=== PATIENT | female | born 1960 | race Caucasian/White ===

== ENCOUNTER → 2016-11-18 | Outpatient (CLI) | payer MEDICARE, BC ==
[~2016-11-18] MED LIST: ASPI-482 PO; CARI350T14 PO; CHOL10003 PO; DILT120C97 PO; DILT180C2 PO; FURO20TA3 PO; GABA-586 PO; IOHEXOL 180 MG/ML 10 ML VIAL. ONE; LEVO50TA5 PO; METH10TA10 PO; NAPR500T3 PO; OLME1TAB PO; PRAV40TA2 PO; PROAIR HFA8.5 GM INH; methylPREDNISolone ACETATE 40 MG/ML VIAL. ONE; methylPREDNISolone ACETATE 80 MG/ML VIAL. ONE
--- NOTE | 2016-11-18 11:42 | PAIN ---
DATE OF SERVICE: 11/18/2016 PROGRESS NOTE DIAGNOSES: Lumbar radiculopathy with lumbar degenerative disk disease and lumbar spondylosis. HISTORY OF PRESENT ILLNESS: The patient is a 56-year-old female who returns for followup status post lumbar epidural steroid injections x 2. The patient reports approximately 50% improvement initially, but the pain is returning now over the past couple of days and reports the first week is doing very well, but pain returning in the low back and left leg since that time. The patient reports no new motor or sensory deficits, no new bowel or bladder incontinence, but the pain is becoming worse, is a 6 on a scale of 10, radiating to the left posterior gluteus, posterior lateral thigh, posterior calf and anterior medial calf with muscle spasms in the legs, increased pain with standing, and worse from the knee down in the left side with weightbearing. The patient reports that she is planning to start physical therapy once again, but it has been back yet. I encouraged her strongly to do this, especially with some water therapy, which they had prescribed for her and she had to stop because she had illness, but plans on going back to this soon. The patient's old chart was reviewed as her current medication regimen updated. Current review of systems updated today as well. PHYSICAL EXAMINATION: VITAL SIGNS: Today, the patient's blood pressure is 129/58, pulse 99, respirations 18, temperature 98.8 degrees Fahrenheit, height 5 feet 4 inches, weight is 2.0 pounds. GENERAL: The patient is awake, alert, oriented, appropriate, very pleasant demeanor. HEENT: Head shows normocephalic, atraumatic. Extraocular movements are intact and symmetrical. Oral cavity shows mucous membranes are moist and pink. NECK: Shows anterior throat supple. Swallow reflex is symmetrical. CHEST: Shows normal on inspection. Breath sounds are clear bilaterally. HEART: Shows S1 and S2 clear. ABDOMEN: Obese, soft, nontender, nondistended. BACK: Shows spine grossly midline. Lumbar paraspinous muscle shows some moderate tenderness with palpation, but only in the lower lumbar distribution, only diffusely without radiation. EXTREMITIES: Lower extremities showed deep tendon reflexes at 1+ in the patellar and tendo calcaneus tendons are equal. Motor exam is approximately 4 on a scale of 5 equal, but equal and strong with dorsiflexion, extension, quadriceps and hamstring flexion and symmetrical. PLAN: Options were discussed with the patient. At this time, we will proceed with a third lumbar epidural steroid injection with fluoroscopic guidance. Risks were again discussed including, but not limited to bleeding, infection, possibility of epidural hematoma, subsequent neurologic compromise, dural puncture, headaches, spinal cord and/or nerve damage, side effects of steroid medication and poor results regarding pain control. The patient understands and wishes to proceed. The patient will return to clinic in approximately 2 weeks for followup. Again, strongly encouraged to start physical therapy once again as she is doing some aquatic therapy, which will be the most helpful for her. PROCEDURE NOTE DIAGNOSES: Lumbar radiculopathy with lumbar degenerative disk disease and lumbar spondylosis. PROCEDURE: Lumbar epidural steroid injection using translaminar approach at L5-S1 level with fluoroscopic guidance using sterile prep and drape and local anesthetic. Medications injected are 120 mg Depo-Medrol plus 10 mL preservative-free normal saline and 2 mL Isovue for contrast. Condition is stable at discharge. The patient tolerated procedure well, had no complications. MISSY LARRY MD DR: DIANA/billy JOB#: [id number] / [id number]
== END | disposition home or self-care (01) ==
LOC: PNCL 10:05
PROVIDERS: ATTEND Anesthesiology
DX: M51.16 Intervertebral disc disorders with radiculopathy, lumbar region (principal); E66.9 Obesity, unspecified
CPT/HCPCS: 62311; J1030; J1040

== ENCOUNTER 2016-11-24 11:11 | Inpatient (IN) | payer MEDICARE, BC ==
[~2016-11-24 11:11] MED LIST changes: -IOHEXOL 180 MG/ML 10 ML VIAL. ONE; -methylPREDNISolone ACETATE 40 MG/ML VIAL. ONE; -methylPREDNISolone ACETATE 80 MG/ML VIAL. ONE
[2016-11-24] MEDS ORDERED: DOPAMINE 400MG/250ML PREMIX BAG. IV ONE (12:31)
[2016-11-24] MEDS ORDERED: EPINEPHRINE 1 MG/10 ML DISP.SYRIN. ONE ×3 (12:31→23:00)
[2016-11-24] MEDS ORDERED: SODIUM BICARB ADULT 8.4% 50 MEQ/50 ML DISP.SYRIN. ONE (12:31)
[2016-11-24] MEDS ORDERED: EPINEPHRINE 30 MG/30 ML VIAL. ONE (12:31)
[2016-11-24] MEDS ORDERED: ATROPINE 0.5 MG/5 ML DISP.SYRIN. ONE (12:31)
--- NOTE | 2016-11-24 12:44 | ED.ADGEN ---
Adult General Chief Complaint Chief Complaint: GI PROBLEM HPI HPI Patient is a 56 year old female presents emergency department complaining of 2 day history of nausea, vomiting, and diarrhea. Patient reports that her stools have been dark and tarry. She has some A she initially had some abdominal pain was taking [id number]-[id number] antacids such as Tums and Pepto-Bismol. Patient does have a history of regular alcohol use. She is a bit of a difficult historian but does report she has a history of fibromyalgia as well as gastroparesis. She denies being diabetic. She states she has some known "scarring" of her esophagus. Patient states that at one time in the past she did have bright red blood per rectum and after colonoscopy was found to have significant hemorrhoids. Patient states that she has some lightheadedness and dizziness but this is not unusual for her. She denies any chest pain or shortness of breath. Review of Systems Review of Systems Constitutional: Denies fever or chills. [] Eyes: Denies change in visual acuity. [] HENT: Denies nasal congestion or sore throat. [] Respiratory: Denies cough or shortness of breath. [] Cardiovascular: Denies chest pain or edema. [] GI: Denies abdominal pain, nausea, vomiting, bloody stools or diarrhea. [] : Denies dysuria. [] Musculoskeletal: Denies back pain or joint pain. [] Integument: Denies rash. [] Neurologic: Denies headache, focal weakness or sensory changes. [] Endocrine: Denies polyuria or polydipsia. [] Lymphatic: Denies swollen glands. [] Psychiatric: Denies depression or anxiety. [] Current Medications Current Medications Current Medications Medications (Trade) Dose Ordered Sig/[facility] Start Time Stop Time Status Last Admin Dose Admin Ondansetron HCl (Zofran) 4 mg 1X ONCE 11/24/16 13:00 11/24/16 13:04 DC 11/24/16 13:15 4 MG Allergies Allergies Allergies Coded Allergies Type Severity Reaction Last Updated Verified bupropion Allergy Intermediate 11/24/16 Yes Physical Exam Physical Exam Constitutional: Well developed, well nourished, no acute distress, non-toxic appearance. [] HENT: Normocephalic, atraumatic, bilateral external ears normal, oropharynx moist, no oral exudates, nose normal. [] Eyes: PERRLA, EOMI, conjunctiva normal, no discharge. [] Neck: Normal range of motion, no tenderness, supple, no stridor. [] Cardiovascular:Heart rate regular rhythm, no murmur [] Lungs & Thorax: Bilateral breath sounds clear to auscultation [] Abdomen: Bowel sounds normal, soft, diffusely tender to palpation without peritoneal signs, no masses, no pulsatile masses. [] Skin: Warm, dry, no erythema, no rash. Slightly jaundiced [] Back: No tenderness, no CVA tenderness. [] Extremities: No tenderness, no cyanosis, no clubbing, ROM intact, no edema. [] Neurologic: Alert and oriented X 3, normal motor function, normal sensory function, no focal deficits noted. [] Psychologic: Affect normal, judgement normal, mood normal. [] Current Patient Data Vital Signs Vital Signs Date Time Temp Pulse Resp B/P Pulse Ox O2 Delivery O2 Flow Rate FiO2 11/24/16 13:15 103 20 117/55 98 Room Air 11/24/16 12:00 97.9 97.9 Lab Values Laboratory Tests Test 11/24/16 13:00 White Blood Count 11.2x10^3/uL (4.0-11.0) H Red Blood Count 1.89x10^6/uL (3.50-5.40) L Hemoglobin 6.5g/dL (12.0-15.5) *L Hematocrit 19.6% (36.0-47.0) *L Mean Corpuscular Volume 104fL (79-100) H Mean Corpuscular Hemoglobin 34pg (25-35) Mean Corpuscular Hemoglobin Concent 33g/dL (31-37) Red Cell Distribution Width 16.3% (11.5-14.5) H Platelet Count 99x10^3/uL (140-400) L Neutrophils (%) (Auto) 73% (31-73) Lymphocytes (%) (Auto) 13% (24-48) L Monocytes (%) (Auto) 13% (0-9) H Eosinophils (%) (Auto) 1% (0-3) Basophils (%) (Auto) 0% (0-3) Neutrophils # (Auto) 8.1x10^3uL (1.8-7.7) H Lymphocytes # (Auto) 1.5x10^3/uL (1.0-4.8) Monocytes # (Auto) 1.4x10^3/uL (0.0-1.1) H Eosinophils # (Auto) 0.1x10^3/uL (0.0-0.7) Basophils # (Auto) 0.0x10^3/uL (0.0-0.2) Prothrombin Time 18.1SEC (11.7-14.0) H Prothrombin Time INR 1.6 (0.8-1.1) H PTT 28SEC (24-38) Sodium Level 137mmol/L (136-145) Potassium Level 4.7mmol/L (3.5-5.1) Chloride Level 103mmol/L (98-107) Carbon Dioxide Level 27mmol/L (21-32) Anion Gap 7 (6-14) Blood Urea Nitrogen 33mg/dL (7-20) H Creatinine 1.3mg/dL (0.6-1.0) H Estimated GFR (Cockcroft-Gault) 42.7 Glucose Level 126mg/dL (70-99) H Lactic Acid Level 2.9mmol/L (0.4-2.0) H Calcium Level 9.1mg/dL (8.5-10.1) Aspartate Amino Transferase (AST) 54U/L (15-37) H Alanine Aminotransferase (ALT) 55U/L (14-59) Alkaline Phosphatase 204U/L (46-116) H Troponin I Quantitative 0.061ng/mL (0.000-0.055) NR-Tlb-M-Type Natriuretic Peptide 54pg/mL (0-124) Lipase 268U/L (73-393) Laboratory Tests 11/24/16 13:00 Laboratory Tests 11/24/16 13:00 EKG EKG [] Radiology/Procedures Radiology/Procedures Abdomen radiograph History: Severe abdominal pain with blood in stool. Comparison: None. Findings: AP supine abdomen radiograph, 2 images. Bowel gas pattern is nonspecific, without evidence of obstruction. No gross pneumoperitoneum is seen. Degenerative changes are present in the spine. Numerous calcifications in the pelvis are favored to be phleboliths. Impression: Nonspecific bowel gas pattern. DICTATED and SIGNED BY: ALLI FERGUSON MD DATE: 11/24/16 [id number] CC: ROSEANNA PÉREZ MD; HAYLEY DANIELS MD ~[] Course & Med Decision Making Course & Med Decision Making Pertinent Labs and Imaging studies reviewed. (See chart for details) The patient has a nonacute abdominal exam but is diffusely tender. However, her hemoglobin is significantly low at 6.5. Her blood pressures continued to trend down while she has been here. She has been accepted to the hospitalist service and we are currently waiting room to the ICU. In the meantime, I have started her on 2 units of packed red blood cells. She will be seen by GI. GI bleed, anemia, h/o hypertension, NSTEMI [] Dragon Disclaimer Dragon Disclaimer This electronic medical record was generated, in whole or in part, using a voice recognition dictation system. Critical Care Time Critical care time was 50 minutes exclusive of procedures. ROSEANNA PÉREZ MD Nov 24, 2016 12:44
[2016-11-24] MEDS ORDERED: ONDANSETRON PF 4 MG/2 ML VIAL. IV ONE (13:00)
--- NOTE | 2016-11-24 13:12 | RAD ---
Abdomen radiograph History: Severe abdominal pain with blood in stool. Comparison: None. Findings: AP supine abdomen radiograph, 2 images. Bowel gas pattern is nonspecific, without evidence of obstruction. No gross pneumoperitoneum is seen. Degenerative changes are present in the spine. Numerous calcifications in the pelvis are favored to be phleboliths. Impression: Nonspecific bowel gas pattern.
[2016-11-24 13:16] LABS: BASO % 0 % (0-3); EOS % 1 % (0-3); LYMPH # 1.5 x10^3/uL (1.0-4.8); LYMPH % 13 % (24-48); MEAN CORPUSCULAR HEMOGLOBIN 34 pg (25-35); MEAN CORPUSCULAR HGB CONC 33 g/dL (31-37); MEAN CORPUSCULAR VOLUME 104 fL (79-100); MONO % 13 % (0-9); NEUT % 73 % (31-73); PLATELET COUNT 99 x10^3/uL (140-400); RED BLOOD COUNT 1.89 x10^6/uL (3.50-5.40); RED CELL DISTRIBUTION WIDTH 16.3 % (11.5-14.5); WHITE BLOOD COUNT 11.2 x10^3/uL (4.0-11.0)
[2016-11-24 13:27] LABS: CALCIUM 9.1 mg/dL (8.5-10.1); CREATININE 1.3 mg/dL (0.6-1.0); GFR 42.7; POTASSIUM 4.7 mmol/L (3.5-5.1)
[2016-11-24 13:28] LABS: HEMATOCRIT 19.6 % (36.0-47.0); HEMOGLOBIN 6.5 g/dL (12.0-15.5)
[2016-11-24 13:30] LABS: INR 1.6 (0.8-1.1); PROTHROMBIN TIME PATIENT 18.1 SEC (11.7-14.0)
[2016-11-24] MEDS ORDERED: IV NORMAL SALINE 1000ML BAG 1,000 ML IV SCH ×3 (14:05→18:15)
[2016-11-24] MEDS ORDERED: FENTANYL PF 100 MCG/2 ML VIAL. IV PRN (14:15)
[2016-11-24] MEDS ORDERED: ONDANSETRON PF 4 MG/2 ML VIAL. IV PRN (14:15)
[2016-11-24 17:50] VITALS: BP 77/44
[2016-11-24 18:00] VITALS: BP 93/41
[2016-11-24] MEDS ORDERED: IV NORMAL SALINE 1000ML BAG 1,000 ML IV ONE (18:15)
[2016-11-24] MEDS ORDERED: PHYTONADIONE 10 MG/ML AMPUL. SQ ONE (18:15)
[2016-11-24] MEDS ORDERED: PANTOPRAZOLE IV PUSH 40 MG VIAL. IVP ONE (18:15)
[2016-11-24] MEDS ORDERED: NALOXONE 0.4 MG/ML VIAL. IV PRN (18:15)
--- NOTE | 2016-11-24 18:20 | PDOC1 ---
History and Physical Date of Admission Date of Admission DATE: 11/24/16 TIME: 18:17 Identification/Chief Complaint Chief Complaint blood per rectum Source Source: Caregiver, Chart review History of Present Illness History of Present Illness Ms. Neff, is a 56 year old female admitted for hematochezia, anemia, lethargy. She complained of a 2 day history of nausea, vomiting, and diarrhea. Patient reports that her stools have been dark and tarry. She had 2 large volume blood stools in the ER, the second causing hypotension, possible vagal response. She has not felt well for 2 days, and has not been drinking EtOH as she normally would recent use of [id number] antacids such as Tums and Pepto-Bismol, not much improvement history of fibromyalgia as well as gastroparesis Past Medical History Cardiovascular: AFIB, HTN GI: GERD, Other (gastroparesis) Musculoskeletal: low back pain, Other Rheumatologic: Fibromyalgia Infectious disease: No pertinent hx ENT: No pertinent hx Renal/: No pertinent hx Endocrine: No pertinent hx Dermatology: No pertinent hx Past Surgical History Past Surgical History: Other Family History Family History: Family History Unknown Social History ALCOHOL: heavy (8 daily + lemonritas?) Drugs: None Current Problem List Problem List Problems Medical Problems: (1) Anemia due to blood loss, acute Status: Acute (2) GI bleed Status: Acute (3) Hypertension Status: Acute (4) NSTEMI (non-ST elevated myocardial infarction) Status: Acute Problems: Current Medications Current Medications Current Medications Ondansetron HCl (Zofran) 4 mg 1X ONCE IV Last administered on 11/24/16 13:15; Start 11/24/16 at 13:00; Stop 11/24/16 at 13:04; Status DC Ondansetron HCl (Zofran) 4 mg PRN Q8HRS PRN IV NAUSEA/VOMITING; Start 11/24/16 at 14:15; Stop 11/25/16 at 14:14 Fentanyl Citrate 50 mcg 50 mcg PRN Q1HR PRN IV PAIN; Start 11/24/16 at 14:15; Stop 11/25/16 at 14:14 Sodium Chloride (Iv Sodium Chloride 0.9% 1000ml Bag) 1,000 ml @ 100 mls/hr Q10H IV Last administered on 11/24/16 14:24; Start 11/24/16 at 14:05; Stop 11/25 at 14:04 Active Scripts Active Reported Vitamin D3 (Cholecalciferol (Vitamin D3)) 1,000 Unit Tablet 1,000 Unit PO Aspir 81 (Aspirin) 81 Mg Tablet.dr 1 Tab PO DAILY Carisoprodol 350 Mg Tablet 350 Mg PO TID&HS Naproxen 500 Mg Tablet 500 Mg PO Proair Hfa Inhaler (Albuterol Sulfate) 8.5 Gm Hfa.aer.ad 1 Puff INH PRN Q6HRS PRN Furosemide 20 Mg Tablet 20 Mg PO DAILY Gabapentin 300 Mg Capsule 300 Mg PO DAILY Methylphenidate Hcl 10 Mg Tablet 10 Mg PO 5XDAY Levothyroxine Sodium 50 Mcg Tablet 50 Mcg PO DAILYAC Pravastatin Sodium 40 Mg Tablet 40 Mg PO DAILY Benicar Hct 20-12.5 Mg Tablet (Olmesartan/Hydrochlorothiazide) 1 Each Tablet 1 Tab PO DAILY Diltiazem 24HR Cd (Diltiazem Hcl) 120 Mg Cap.er.24h 120 Mg PO DAILY Allergies Allergies: Coded Allergies: bupropion (Verified Allergy, Intermediate, 11/24/16) ROS Review of System pt sleepy, lethargic and confused. unable to complete ROS Physical Exam Physical Exam tele reg [id number] General: Cooperative, mild distress, Other (confused) Lungs: Clear to auscultation, Normal air movement Heart: no murmurs Abdomen: Normal bowel sounds, Soft (obese), No tenderness Extremities: No clubbing, No cyanosis, No edema Skin: No rashes, No significant lesion Neuro: Sensation intact, Other (responds to verbal or painful, does not follow commands, falls back asleep) Vitals Vitals Vital Signs Date Time Temp Pulse Resp B/P Pulse Ox O2 Delivery O2 Flow Rate FiO2 11/24/16 16:57 100 15 141/64 98 Nasal Cannula 2 11/24/16 16:36 97.7 97.7 Labs Labs Laboratory Tests Test 11/24/16 13:00 White Blood Count 11.2x10^3/uL (4.0-11.0) Red Blood Count 1.89x10^6/uL (3.50-5.40) Hemoglobin 6.5g/dL (12.0-15.5) Hematocrit 19.6% (36.0-47.0) Mean Corpuscular Volume 104fL (79-100) Mean Corpuscular Hemoglobin 34pg (25-35) Mean Corpuscular Hemoglobin Concent 33g/dL (31-37) Red Cell Distribution Width 16.3% (11.5-14.5) Platelet Count 99x10^3/uL (140-400) Neutrophils (%) (Auto) 73% (31-73) Lymphocytes (%) (Auto) 13% (24-48) Monocytes (%) (Auto) 13% (0-9) Eosinophils (%) (Auto) 1% (0-3) Basophils (%) (Auto) 0% (0-3) Neutrophils # (Auto) 8.1x10^3uL (1.8-7.7) Lymphocytes # (Auto) 1.5x10^3/uL (1.0-4.8) Monocytes # (Auto) 1.4x10^3/uL (0.0-1.1) Eosinophils # (Auto) 0.1x10^3/uL (0.0-0.7) Basophils # (Auto) 0.0x10^3/uL (0.0-0.2) Prothrombin Time 18.1SEC (11.7-14.0) Prothromb Time International Ratio 1.6 (0.8-1.1) Activated Partial Thromboplast Time 28SEC (24-38) Sodium Level 137mmol/L (136-145) Potassium Level 4.7mmol/L (3.5-5.1) Chloride Level 103mmol/L (98-107) Carbon Dioxide Level 27mmol/L (21-32) Anion Gap 7 (6-14) Blood Urea Nitrogen 33mg/dL (7-20) Creatinine 1.3mg/dL (0.6-1.0) Estimated GFR (Cockcroft-Gault) 42.7 Glucose Level 126mg/dL (70-99) Lactic Acid Level 2.9mmol/L (0.4-2.0) Calcium Level 9.1mg/dL (8.5-10.1) Aspartate Amino Transf (AST/SGOT) 54U/L (15-37) Alanine Aminotransferase (ALT/SGPT) 55U/L (14-59) Alkaline Phosphatase 204U/L (46-116) Troponin I Quantitative 0.061ng/mL (0.000-0.055) SV-Rdw-H-Type Natriuretic Peptide 54pg/mL (0-124) Lipase 268U/L (73-393) Laboratory Tests Test 11/24/16 13:00 White Blood Count 11.2x10^3/uL (4.0-11.0) Red Blood Count 1.89x10^6/uL (3.50-5.40) Hemoglobin 6.5g/dL (12.0-15.5) Hematocrit 19.6% (36.0-47.0) Mean Corpuscular Volume 104fL (79-100) Mean Corpuscular Hemoglobin 34pg (25-35) Mean Corpuscular Hemoglobin Concent 33g/dL (31-37) Red Cell Distribution Width 16.3% (11.5-14.5) Platelet Count 99x10^3/uL (140-400) Neutrophils (%) (Auto) 73% (31-73) Lymphocytes (%) (Auto) 13% (24-48) Monocytes (%) (Auto) 13% (0-9) Eosinophils (%) (Auto) 1% (0-3) Basophils (%) (Auto) 0% (0-3) Neutrophils # (Auto) 8.1x10^3uL (1.8-7.7) Lymphocytes # (Auto) 1.5x10^3/uL (1.0-4.8) Monocytes # (Auto) 1.4x10^3/uL (0.0-1.1) Eosinophils # (Auto) 0.1x10^3/uL (0.0-0.7) Basophils # (Auto) 0.0x10^3/uL (0.0-0.2) Prothrombin Time 18.1SEC (11.7-14.0) Prothromb Time International Ratio 1.6 (0.8-1.1) Activated Partial Thromboplast Time 28SEC (24-38) Sodium Level 137mmol/L (136-145) Potassium Level 4.7mmol/L (3.5-5.1) Chloride Level 103mmol/L (98-107) Carbon Dioxide Level 27mmol/L (21-32) Anion Gap 7 (6-14) Blood Urea Nitrogen 33mg/dL (7-20) Creatinine 1.3mg/dL (0.6-1.0) Estimated GFR (Cockcroft-Gault) 42.7 Glucose Level 126mg/dL (70-99) Lactic Acid Level 2.9mmol/L (0.4-2.0) Calcium Level 9.1mg/dL (8.5-10.1) Aspartate Amino Transf (AST/SGOT) 54U/L (15-37) Alanine Aminotransferase (ALT/SGPT) 55U/L (14-59) Alkaline Phosphatase 204U/L (46-116) Troponin I Quantitative 0.061ng/mL (0.000-0.055) BU-Mem-E-Type Natriuretic Peptide 54pg/mL (0-124) Lipase 268U/L (73-393) VTE Prophylaxis Ordered VTE Prophylaxis Devices: No VTE Pharmacological Prophylaxi: Contraindicated Assessment/Plan Assessment/Plan Acute blood loss anemia GI bleed, lower possible, start IV PPI to be thorough, concern for brisk upper INR up, give FFP, vit K SQ, consult HEME admit to ICU 2 visits, time > 40 min metabolic encephalopathy, check b12 and folate, MCV on hgb is large, heavy EtOH use. banana bag and CIWS protocol obesity htn GERD appears dry, hydrate, vasomotor nephropathy CARMEL MALHOTRA MD Nov 24, 2016 18:20
[2016-11-24] MEDS ORDERED: MVI, ADULT NO.4 WITH VIT K 10 ML, FOLIC ACID 1 MG, THIAMINE 100 MG in IV RINGERS,LACTAT... IV ONE ×4 (18:45)
[2016-11-24 19:00] VITALS: BP_SYST 93; BP_SYST 95; BP_DIAS 47; BP_DIAS 50
[2016-11-24] MEDS ORDERED: PANTOPRAZOLE SODIUM IV 80 MG in IV NORMAL SALINE 100ML 100 ML IV SCH (19:00)
[2016-11-24 19:26] LABS: BASO # 0.1 x10^3/uL (0.0-0.2); BASO % 0 % (0-3); EOS % 0 % (0-3); HEMATOCRIT 22.7 % (36.0-47.0); HEMOGLOBIN 7.4 g/dL (12.0-15.5); LYMPH # 1.6 x10^3/uL (1.0-4.8); LYMPH % 14 % (24-48); MEAN CORPUSCULAR HEMOGLOBIN 31 pg (25-35); MEAN CORPUSCULAR HGB CONC 32 g/dL (31-37); MEAN CORPUSCULAR VOLUME 95 fL (79-100); MONO % 12 % (0-9); NEUT % 74 % (31-73); PLATELET COUNT 90 x10^3/uL (140-400); RED CELL DISTRIBUTION WIDTH 20.8 % (11.5-14.5); WHITE BLOOD COUNT 11.9 x10^3/uL (4.0-11.0)
[2016-11-24 19:52] LABS: BARBITURATES NEG (NEG); BENZODIAZEPINES NEG (NEG); CANNABINOIDS NEG (NEG); COCAINE NEG (NEG); METHADONE NEG (NEG); OPIATES NEG (NEG); PHENCYCLIDINE NEG (NEG)
[2016-11-24 20:00] VITALS: BP_SYST 124; BP_DIAS 50; BP_DIAS 58
[2016-11-24 20:06] LABS: ETHANOL, URINE NEG (NEG)
[2016-11-24 21:00] VITALS: BP 92/57
[2016-11-24 21:03] LABS: PLT ESTIMATE DECREASED (ADEQUATE)
[2016-11-24 21:04] LABS: ANISOCYTOSIS MOD; POLYCHROMASIA SLIGHT
[2016-11-24 22:00] VITALS: BP 98/70
[2016-11-24] MEDS ORDERED: ETOMIDATE 20 MG/10 ML VIAL. IV ONE (22:11)
[2016-11-24] MEDS ORDERED: SUCCINYLCHOLINE 200 MG/10 ML VIAL. ONE (22:11)
[2016-11-24 22:20] LABS: RED BLOOD COUNT 2.07 x10^6/uL (3.50-5.40); RED CELL DISTRIBUTION WIDTH 21.3 % (11.5-14.5); WHITE BLOOD COUNT 21.5 x10^3/uL (4.0-11.0)
--- NOTE | 2016-11-24 22:21 | RAD ---
PROCEDURE Nuclear medicine GI bleeding scan HISTORY Massive rectal bleeding. TECHNIQUE Patient was injected prior 2.0 millicuries of technetium-99m tagged RBC and sequential images of the abdomen are obtained without contrast. COMPARISON None available. FINDINGS The initial images demonstrate radiotracer activity in the central vasculature. The subsequent images demonstrate increasing radio activity in the left mid and lower abdomen probably in the descending colon. IMPRESSION The study is positive for GI bleeding probably in the descending colon. The results were given to the Yasir, nurse taking care of the patient in ICU after completion study Electronically signed by: Magdalena Rodgers MD (Nov 24, 2016 22:20:21)
[2016-11-24 22:22] LABS: HEMOGLOBIN 6.3 g/dL (12.0-15.5)
[2016-11-24] MEDS ORDERED: EPINEPHRINE VIAL 4 MG in IV NORMAL SALINE 250ML 250 ML IV PRN (22:45)
[2016-11-24] MEDS ORDERED: NOREPINEPHRINE 8 MG in IV NORMAL SALINE 250 ML IV PRN (22:45)
--- NOTE | 2016-11-24 23:48 | PDOC2 ---
CONSULT Date of Consult Date of Consult DATE: 11/24/16 TIME: 23:35 Reason for Consult Reason for Consult: GI bleed Referring Physician Referring Physician: Dr Rebollar Identification/Chief Complaint Chief Complaint BRB per rectum Source Source: Chart review, Unable to obtain due to (intubated) History of Present Illness Reason for Visit: 56 yo female presented with melanotic stools and some hematemesis. Had an episode of hypotension, PEA in bleeding scan. Was coded times two. Past Medical History Cardiovascular: AFIB, HTN GI: GERD, Other (gastroparesis) Musculoskeletal: low back pain, Other Rheumatologic: Fibromyalgia Infectious disease: No pertinent hx ENT: No pertinent hx Renal/: No pertinent hx Endocrine: No pertinent hx Dermatology: No pertinent hx Past Surgical History Past Surgical History: Other Family History Family History: Family History Unknown Social History ALCOHOL: heavy (8 daily + lemonritas?) Drugs: None Current Problem List Problem List Problems Medical Problems: (1) Anemia due to blood loss, acute Status: Acute (2) GI bleed Status: Acute (3) Hypertension Status: Acute (4) NSTEMI (non-ST elevated myocardial infarction) Status: Acute Current Medications Current Medications Current Medications Ondansetron HCl (Zofran) 4 mg 1X ONCE IV Last administered on 11/24/16 13:15; Start 11/24/16 at 13:00; Stop 11/24/16 at 13:04; Status DC Ondansetron HCl (Zofran) 4 mg PRN Q8HRS PRN IV NAUSEA/VOMITING; Start 11/24/16 at 14:15; Stop 11/25/16 at 14:14 Fentanyl Citrate 50 mcg 50 mcg PRN Q1HR PRN IV PAIN; Start 11/24/16 at 14:15; Stop 11/25/16 at 14:14 Sodium Chloride (Iv Sodium Chloride 0.9% 1000ml Bag) 1,000 ml @ 100 mls/hr Q10H IV Last administered on 11/24/16 14:24; Start 11/24/16 at 14:05; Stop at 18:09; Status DC Pantoprazole Sodium (Protonix Vial) 40 mg 1X ONCE IVP ; Start 11/24/16 at 18:15 ; Stop 11/24/16 at 18:16; Status DC Pantoprazole Sodium (Protonix) 40 mg BIDBFRMEAL PO ; Start 11/25/16 at 07:30 Phytonadione 2 mg 2 mg 1X ONCE SQ Last administered on 11/24/16 18:15; Start 11/24/16 at 18:15; Stop 11/24/16 at 18:16; Status DC Sodium Chloride 1,000 ml @ 200 mls/hr Q5H IV ; Start 11/24/16 at 18:08; Stop 11/24/16 at 18:10; Status DC Pantoprazole Sodium 80 mg/ Sodium Chloride 100 ml @ 10 mls/hr Q10H IV Last administered on 11/24/16 18:50; Start 11/24/16 at 19:00 Sodium Chloride (Iv Sodium Chloride 0.9% 1000ml Bag) 1,000 ml @ 1,000 mls/hr 1X ONCE IV Last administered on 11/24/16 18:15; Start 11/24/16 at 18:15; Stop 11/24/16 at 19:14; Status DC Naloxone HCl 0.4 mg 0.4 mg PRN Q1HR PRN IV SEE COMMENTS; Start 11/24/16 at 18:15 Sodium Chloride 1,000 ml @ 175 mls/hr Q5H43M IV Last administered on 11/24/16 20:51; Start 11/24/16 at 18:15 Multivitamins/ Minerals/Folic Acid/Thiamine HCl/ Lactated Ringer's (Infuvite Adult/ Iv Lactated Ringers) 1,011.2 ml @ 1,000 mls/ hr 1X ONCE IV Last administered on 11/24/16 18:45; Start 11/24/16 at 18:45; Stop 11/24/16 at 19:45; Status DC Etomidate (Amidate) 20 mg STK-MED ONCE IV ; Start 11/24/16 at 22:11; Stop at 22:12; Status DC Succinylcholine Chloride 200 mg 200 mg STK-MED ONCE .ROUTE ; Start 11/24/16 at 22 :11; Stop 11/24/16 at 22:12; Status DC Epinephrine HCl 4 mg/Sodium Chloride 254 ml @ 0 mls/hr CONT PRN IV SEE I/O RECORD; Start 11/24/16 at 22:45 Norepinephrine Bitartrate/Sodium Chloride (Levophed Vial/ Iv Sodium Chloride 0.9 % 250ml) 258 ml @ 1.93 mls/hr CONT PRN IV SEE I/O RECORD; Start 11/24/16 at 22: 45 Epinephrine HCl 1 mg STK-MED ONCE .ROUTE ; Start 11/24/16 at 22:59; Stop 11/24/16 at 23:00; Status DC Active Scripts Active Reported Vitamin D3 (Cholecalciferol (Vitamin D3)) 1,000 Unit Tablet 1,000 Unit PO Aspir 81 (Aspirin) 81 Mg Tablet.dr 1 Tab PO DAILY Carisoprodol 350 Mg Tablet 350 Mg PO TID&HS Naproxen 500 Mg Tablet 500 Mg PO Proair Hfa Inhaler (Albuterol Sulfate) 8.5 Gm Hfa.aer.ad 1 Puff INH PRN Q6HRS PRN Furosemide 20 Mg Tablet 20 Mg PO DAILY Gabapentin 300 Mg Capsule 300 Mg PO DAILY Methylphenidate Hcl 10 Mg Tablet 10 Mg PO 5XDAY Levothyroxine Sodium 50 Mcg Tablet 50 Mcg PO DAILYAC Pravastatin Sodium 40 Mg Tablet 40 Mg PO DAILY Benicar Hct 20-12.5 Mg Tablet (Olmesartan/Hydrochlorothiazide) 1 Each Tablet 1 Tab PO DAILY Diltiazem 24HR Cd (Diltiazem Hcl) 120 Mg Cap.er.24h 120 Mg PO DAILY Allergies Allergies: Coded Allergies: bupropion (Verified Allergy, Intermediate, 11/24/16) ROS Review of System unobtainable 2/2 intubation Physical Exam Abdomen: Soft, Other (obese) Skin: Other (pale) Vitals VITALS Vital Signs Date Time Temp Pulse Resp B/P Pulse Ox O2 Delivery O2 Flow Rate FiO2 11/24/16 21:00 105 15 92/57 95 Nasal Cannula 2.0 11/24/16 20:00 97.7 97.7 Labs Labs Laboratory Tests Test 11/24/16 13:00 11/24/16 18:15 11/24/16 19:35 11/24/16 21:30 White Blood Count 11.2x10^3/uL (4.0-11.0) 11.9x10^3/uL (4.0-11.0) Red Blood Count 1.89x10^6/uL (3.50-5.40) 2.40x10^6/uL (3.50-5.40) Hemoglobin 6.5g/dL (12.0-15.5) 7.4g/dL (12.0-15.5) Hematocrit 19.6% (36.0-47.0) 22.7% (36.0-47.0) Mean Corpuscular Volume 104fL (79-100) 95fL (79-100) Mean Corpuscular Hemoglobin 34pg (25-35) 31pg (25-35) Mean Corpuscular Hemoglobin Concent 33g/dL (31-37) 32g/dL (31-37) Red Cell Distribution Width 16.3% (11.5-14.5) 20.8% (11.5-14.5) Platelet Count 99x10^3/uL (140-400) 90x10^3/uL (140-400) Neutrophils (%) (Auto) 73% (31-73) 74% (31-73) Lymphocytes (%) (Auto) 13% (24-48) 14% (24-48) Monocytes (%) (Auto) 13% (0-9) 12% (0-9) Eosinophils (%) (Auto) 1% (0-3) 0% (0-3) Basophils (%) (Auto) 0% (0-3) 0% (0-3) Neutrophils # (Auto) 8.1x10^3uL (1.8-7.7) 8.8x10^3uL (1.8-7.7) Lymphocytes # (Auto) 1.5x10^3/uL (1.0-4.8) 1.6x10^3/uL (1.0-4.8) Monocytes # (Auto) 1.4x10^3/uL (0.0-1.1) 1.4x10^3/uL (0.0-1.1) Eosinophils # (Auto) 0.1x10^3/uL (0.0-0.7) 0.1x10^3/uL (0.0-0.7) Basophils # (Auto) 0.0x10^3/uL (0.0-0.2) 0.1x10^3/uL (0.0-0.2) Platelet Estimate Decreased (ADEQUATE) Giant Platelets Occ Polychromasia Slight Anisocytosis Mod Prothrombin Time 18.1SEC (11.7-14.0) Prothromb Time International Ratio 1.6 (0.8-1.1) Activated Partial Thromboplast Time 28SEC (24-38) Sodium Level 137mmol/L (136-145) Potassium Level 4.7mmol/L (3.5-5.1) Chloride Level 103mmol/L (98-107) Carbon Dioxide Level 27mmol/L (21-32) Anion Gap 7 (6-14) Blood Urea Nitrogen 33mg/dL (7-20) Creatinine 1.3mg/dL (0.6-1.0) Estimated GFR (Cockcroft-Gault) 42.7 Glucose Level 126mg/dL (70-99) Lactic Acid Level 2.9mmol/L (0.4-2.0) Calcium Level 9.1mg/dL (8.5-10.1) Aspartate Amino Transf (AST/SGOT) 54U/L (15-37) Alanine Aminotransferase (ALT/SGPT) 55U/L (14-59) Alkaline Phosphatase 204U/L (46-116) Troponin I Quantitative 0.061ng/mL (0.000-0.055) XM-Jqa-A-Type Natriuretic Peptide 54pg/mL (0-124) Lipase 268U/L (73-393) Urine Opiates Screen Neg (NEG) Urine Methadone Screen Neg (NEG) Urine Barbiturates Neg (NEG) Urine Phencyclidine Screen Neg (NEG) Urine Amphetamine/Methamphetamine Neg (NEG) Urine Benzodiazepines Screen Neg (NEG) Urine Cocaine Screen Neg (NEG) Urine Cannabinoids Screen Neg (NEG) Urine Ethyl Alcohol Neg (NEG) Ethyl Alcohol Level < 10mg/dL (0-10) Test 11/24/16 22:05 White Blood Count 21.5x10^3/uL (4.0-11.0) Red Blood Count 2.07x10^6/uL (3.50-5.40) Hemoglobin 6.3g/dL (12.0-15.5) Hematocrit 21.0% (36.0-47.0) Mean Corpuscular Volume 101fL (79-100) Mean Corpuscular Hemoglobin 31pg (25-35) Mean Corpuscular Hemoglobin Concent 30g/dL (31-37) Red Cell Distribution Width 21.3% (11.5-14.5) Platelet Count 75x10^3/uL (140-400) Laboratory Tests Test 11/24/16 13:00 11/24/16 18:15 11/24/16 19:35 11/24/16 21:30 White Blood Count 11.2x10^3/uL (4.0-11.0) 11.9x10^3/uL (4.0-11.0) Red Blood Count 1.89x10^6/uL (3.50-5.40) 2.40x10^6/uL (3.50-5.40) Hemoglobin 6.5g/dL (12.0-15.5) 7.4g/dL (12.0-15.5) Hematocrit 19.6% (36.0-47.0) 22.7% (36.0-47.0) Mean Corpuscular Volume 104fL (79-100) 95fL (79-100) Mean Corpuscular Hemoglobin 34pg (25-35) 31pg (25-35) Mean Corpuscular Hemoglobin Concent 33g/dL (31-37) 32g/dL (31-37) Red Cell Distribution Width 16.3% (11.5-14.5) 20.8% (11.5-14.5) Platelet Count 99x10^3/uL (140-400) 90x10^3/uL (140-400) Neutrophils (%) (Auto) 73% (31-73) 74% (31-73) Lymphocytes (%) (Auto) 13% (24-48) 14% (24-48) Monocytes (%) (Auto) 13% (0-9) 12% (0-9) Eosinophils (%) (Auto) 1% (0-3) 0% (0-3) Basophils (%) (Auto) 0% (0-3) 0% (0-3) Neutrophils # (Auto) 8.1x10^3uL (1.8-7.7) 8.8x10^3uL (1.8-7.7) Lymphocytes # (Auto) 1.5x10^3/uL (1.0-4.8) 1.6x10^3/uL (1.0-4.8) Monocytes # (Auto) 1.4x10^3/uL (0.0-1.1) 1.4x10^3/uL (0.0-1.1) Eosinophils # (Auto) 0.1x10^3/uL (0.0-0.7) 0.1x10^3/uL (0.0-0.7) Basophils # (Auto) 0.0x10^3/uL (0.0-0.2) 0.1x10^3/uL (0.0-0.2) Platelet Estimate Decreased (ADEQUATE) Giant Platelets Occ Polychromasia Slight Anisocytosis Mod Prothrombin Time 18.1SEC (11.7-14.0) Prothromb Time International Ratio 1.6 (0.8-1.1) Activated Partial Thromboplast Time 28SEC (24-38) Sodium Level 137mmol/L (136-145) Potassium Level 4.7mmol/L (3.5-5.1) Chloride Level 103mmol/L (98-107) Carbon Dioxide Level 27mmol/L (21-32) Anion Gap 7 (6-14) Blood Urea Nitrogen 33mg/dL (7-20) Creatinine 1.3mg/dL (0.6-1.0) Estimated GFR (Cockcroft-Gault) 42.7 Glucose Level 126mg/dL (70-99) Lactic Acid Level 2.9mmol/L (0.4-2.0) Calcium Level 9.1mg/dL (8.5-10.1) Aspartate Amino Transf (AST/SGOT) 54U/L (15-37) Alanine Aminotransferase (ALT/SGPT) 55U/L (14-59) Alkaline Phosphatase 204U/L (46-116) Troponin I Quantitative 0.061ng/mL (0.000-0.055) LN-Cqr-Q-Type Natriuretic Peptide 54pg/mL (0-124) Lipase 268U/L (73-393) Urine Opiates Screen Neg (NEG) Urine Methadone Screen Neg (NEG) Urine Barbiturates Neg (NEG) Urine Phencyclidine Screen Neg (NEG) Urine Amphetamine/Methamphetamine Neg (NEG) Urine Benzodiazepines Screen Neg (NEG) Urine Cocaine Screen Neg (NEG) Urine Cannabinoids Screen Neg (NEG) Urine Ethyl Alcohol Neg (NEG) Ethyl Alcohol Level < 10mg/dL (0-10) Test 11/24/16 22:05 White Blood Count 21.5x10^3/uL (4.0-11.0) Red Blood Count 2.07x10^6/uL (3.50-5.40) Hemoglobin 6.3g/dL (12.0-15.5) Hematocrit 21.0% (36.0-47.0) Mean Corpuscular Volume 101fL (79-100) Mean Corpuscular Hemoglobin 31pg (25-35) Mean Corpuscular Hemoglobin Concent 30g/dL (31-37) Red Cell Distribution Width 21.3% (11.5-14.5) Platelet Count 75x10^3/uL (140-400) Images Images positive bleeding scan, possible descending colon Assessment/Plan Assessment/Plan GI bleed positive bleeding scan on pressors still hypotensive D/W GI hope to be able to get arteriogram, possible embolization D/W pt's (her son also at bedside) Explained the seriousness of the situation. They voice understanding Thanks for asking us to help with the care of this critically ill lady MARY PRATT MD Nov 24, 2016 23:47
[2016-11-25] MEDS ORDERED: EPINEPHRINE 1 MG/10 ML DISP.SYRIN. ONE
--- NOTE | 2016-11-25 03:35 | PDOC2 ---
Consult: 56-year-old female who I got called to a CODE BLUE in the ICU at 2230. I was informed that the patient was admitted for GI bleed. The patient was in PE a on my initial evaluation. She had received 1 dose of 1 mg of epinephrine. The patient had been intubated at a prior CODE BLUE at 2153 by a different physician. I orchestrated the administration of blood products along with vasopressors. I placed a right femoral Cordis catheter for large volume resuscitation. Our general surgeon and interventional radiologist was called and for hemostasis control. Were able to obtain a pulse and a blood pressure with a map greater than 65. See code chart for details. Unfortunately, I was called back to the patient's room at 2353. The patient's blood pressure had dropped a second time and was currently undergoing chest compressions again. On this evaluation the patient had bleeding actively from the rectum and through the patient's NG tube. She had begun bleeding from her peripheral IVs and was showing clinical evidence of disseminated intravascular coagulation. The general surgeon was with the patient when I arrived at that time. Unfortunately , the patient was too unstable to take to the operating room at that point. I had a long discussion with the patient's . At this point, the patient had been coded 3 times and for the third time we're unable to obtain a pulse. Given the clinical evidence of coagulopathy in a patient unstable for the operating room I expressed my concern for medical futility to the patient's . See nursing code chart for further details. Time of was called at that time. The patient's and family or with the patient. I expressed my condolences to the patient's family. SANTOS LEZAMA MD Nov 25, 2016 03:35
[2016-11-25] MEDS ORDERED: PANTOPRAZOLE 40 MG TABLET. PO SCH (07:30)
--- NOTE | 2016-11-26 13:13 | PDOC3 ---
Discharge Summary Visit Information Date of Admission: Nov 24, 2016 Date of Discharge: Nov 25, 2016 Admitting Diagnosis: GI bleed Final Diagnosis UPPER GI bleed, esophageal varic X1 seen on post Hepatic cirrhosis, coagulopathy hypovolemic shock morbid obesity, BMI > 40 coronary artery disease EtOH abuse NTEMI, RCA likely Problems Medical Problems: (1) Anemia due to blood loss, acute Status: Acute (2) GI bleed Status: Acute (3) Hypertension Status: Acute (4) NSTEMI (non-ST elevated myocardial infarction) Status: Acute Brief Hospital Course Allergies Allergies Coded Allergies Type Severity Reaction Last Updated Verified bupropion Allergy Intermediate 11/24/16 Yes Lab Results Laboratory Tests Test 11/24/16 18:15 11/24/16 19:00 11/24/16 19:35 11/24/16 21:30 White Blood Count 11.9x10^3/uL (4.0-11.0) Red Blood Count 2.40x10^6/uL (3.50-5.40) Hemoglobin 7.4g/dL (12.0-15.5) Hematocrit 22.7% (36.0-47.0) Mean Corpuscular Volume 95fL (79-100) Mean Corpuscular Hemoglobin 31pg (25-35) Mean Corpuscular Hemoglobin Concent 32g/dL (31-37) Red Cell Distribution Width 20.8% (11.5-14.5) Platelet Count 90x10^3/uL (140-400) Neutrophils (%) (Auto) 74% (31-73) Lymphocytes (%) (Auto) 14% (24-48) Monocytes (%) (Auto) 12% (0-9) Eosinophils (%) (Auto) 0% (0-3) Basophils (%) (Auto) 0% (0-3) Neutrophils # (Auto) 8.8x10^3uL (1.8-7.7) Lymphocytes # (Auto) 1.6x10^3/uL (1.0-4.8) Monocytes # (Auto) 1.4x10^3/uL (0.0-1.1) Eosinophils # (Auto) 0.1x10^3/uL (0.0-0.7) Basophils # (Auto) 0.1x10^3/uL (0.0-0.2) Nasal Screen MRSA (PCR) Negative (Negative) Urine Opiates Screen Neg (NEG) Urine Methadone Screen Neg (NEG) Urine Barbiturates Neg (NEG) Urine Phencyclidine Screen Neg (NEG) Urine Amphetamine/Methamphetamine Neg (NEG) Urine Benzodiazepines Screen Neg (NEG) Urine Cocaine Screen Neg (NEG) Urine Cannabinoids Screen Neg (NEG) Urine Ethyl Alcohol Neg (NEG) Ethyl Alcohol Level < 10mg/dL (0-10) Test 11/24/16 22:05 White Blood Count 21.5x10^3/uL (4.0-11.0) Red Blood Count 2.07x10^6/uL (3.50-5.40) Hemoglobin 6.3g/dL (12.0-15.5) Hematocrit 21.0% (36.0-47.0) Mean Corpuscular Volume 101fL (79-100) Mean Corpuscular Hemoglobin 31pg (25-35) Mean Corpuscular Hemoglobin Concent 30g/dL (31-37) Red Cell Distribution Width 21.3% (11.5-14.5) Platelet Count 75x10^3/uL (140-400) Brief Hospital Course Ms. Neff was a 56 old female admitted for hematochezia, anemia, lethargy and melena. She complained of a 2 day history of nausea, vomiting, and diarrhea. admit from ER to ICU, PPI gtt, agressive IV fluid for dehydration, vasomotor nephropathy 4 u PRBC given, ICU admit, Tagged red cell scan positive for GI bleeding probably in the descending colon. cardiac arrest with loss of pulse, CPR given X3, central line placed, resusitation, pressors given discussed with family X3, Pt 11/25 Discharge Information Disposition/Orders: Scheduled Aspirin (Aspir 81) 1 TAB PO DAILY (Reported) Carisoprodol (Carisoprodol) 350 MG PO TID&HS (Reported) Diltiazem Hcl (Diltiazem 24HR Cd) 120 MG PO DAILY (Reported) Furosemide (Furosemide) 20 MG PO DAILY (Reported) Gabapentin (Gabapentin) 300 MG PO DAILY (Reported) Levothyroxine Sodium (Levothyroxine Sodium) 50 MCG PO DAILYAC (Reported) Methylphenidate Hcl (Methylphenidate Hcl) 10 MG PO 5XDAY (Reported) Olmesartan/Hydrochlorothiazide (Benicar Hct 20-12.5 Mg Tablet) 1 TAB PO DAILY ( Reported) Pravastatin Sodium (Pravastatin Sodium) 40 MG PO DAILY (Reported) Scheduled PRN Albuterol Sulfate (Proair Hfa Inhaler) 1 PUFF INH PRN Q6HRS PRN PRN SHORTNESS OF BREATH (Reported) Miscellaneous Medications Cholecalciferol (Vitamin D3) (Vitamin D3) 1,000 UNIT PO (Reported) Naproxen (Naproxen) 500 MG PO (Reported) Patient Instructions Patient Instructions I attended post-mortem today with Dr. Luis Navarro at [facility] [place]. Time > 30min CARMEL MALHOTRA MD Nov 26, 2016 13:13
== END 2016-11-25 05:30 | disposition expired | DRG 368 ==
LOC: ER 11:11 → ED HOLD 13:30 → 1 WEST ICU 17:50
PROVIDERS: ADMIT Internal Medicine; ATTEND Internal Medicine
PROC: 5A1935Z Respiratory Ventilation, Less than 24 Consecutive Hours (ICD-10-PCS; principal; 2016-11-24)
PROC: 30233L1 Transfusion of Nonautologous Fresh Plasma into Peripheral Vein, Percutaneous Approach (ICD-10-PCS; 2016-11-24)
PROC: 30233N1 Transfusion of Nonautologous Red Blood Cells into Peripheral Vein, Percutaneous Approach (ICD-10-PCS; 2016-11-24)
PROC: 30233K1 Transfusion of Nonautologous Frozen Plasma into Peripheral Vein, Percutaneous Approach (ICD-10-PCS; 2016-11-24)
PROC: 5A12012 Performance of Cardiac Output, Single, Manual (ICD-10-PCS; 2016-11-24)
DX: I85.01 Esophageal varices with bleeding (principal); I21.4 Non-ST elevation (NSTEMI) myocardial infarction; G93.41 Metabolic encephalopathy; N17.0 Acute kidney failure with tubular necrosis; D65 Disseminated intravascular coagulation [defibrination syndrome]; J96.00 Acute respiratory failure, unspecified whether with hypoxia or hypercapnia; D68.9 Coagulation defect, unspecified; D62 Acute posthemorrhagic anemia; Z68.41 Body mass index [BMI] 40.0-44.9, adult; K92.0 Hematemesis; K74.60 Unspecified cirrhosis of liver; I10 Essential (primary) hypertension; E86.0 Dehydration; E66.01 Morbid (severe) obesity due to excess calories; K31.84 Gastroparesis; K21.9 Gastro-esophageal reflux disease without esophagitis; I48.91 Unspecified atrial fibrillation; I46.9 Cardiac arrest, cause unspecified; I25.10 Atherosclerotic heart disease of native coronary artery without angina pectoris; F10.10 Alcohol abuse, uncomplicated; K64.9 Unspecified hemorrhoids; M79.7 Fibromyalgia; M54.5 Low back pain; Z79.899 Other long term (current) drug therapy; Z88.8 Allergy status to other drugs, medicaments and biological substances; Z98.890 Other specified postprocedural states; R57.1 Hypovolemic shock
CPT/HCPCS: 36415; 74000; 78278; 80048; 83605; 83690; 83880; 84075; 84450; 84460; 84484; 85007; 85027; 85610; 85730; 86850; 86900; 86901; 86920; 86927; 87641; 94002; 96361; 96374; A9560; C9113; G0480; G0481; J0171; J0461; J1265; J2405; J3430; J7030; J7120; P9016; P9017; 99291-25